=== PATIENT | male | born 1975 | race Caucasian/White ===

== ENCOUNTER 2021-11-21 09:59 | Outpatient (CLI) | payer OTHER, SELFPAY ==
--- NOTE | ~2021-11-21 | CT_ITS ---
EXAMINATION: CT abdomen pelvis wo con DATE: 11/21/2021 10:32 INDICATION: Microscopic hematuria, flank pain TECHNIQUE: Computed tomography (CT) of the abdomen and pelvis was performed without intravenous contr ast. The dose-length product (DLP) was 643.93 mGy-cm. Automated exposure control and iterative recons truction technique were employed. COMPARISON: None FINDINGS: Clustered nodules of the right lower lobe measure up to 4 mm. The heart size is normal. The re is mild circumferential wall thickening of the distal esophagus. Cysts of the liver measure up to 4 mm in the right hepatic lobe. The spleen, pancreas, gallbladder, and adrenal glands are normal. The kidneys are unremarkable. No stones are identified in the kidneys, ureters, or bladder. There is no hydronephrosis or hydroureter. The appendix is normal. There is a 1.2 cm gastrohepatic ligament lymph node. There are otherwise no enlarged abdominal or pelvic lymph nodes. There is no free intraperiton eal gas or evidence of bowel obstruction. There is a fat-containing umbilical hernia. Mild lumbar spo ndylosis is noted. IMPRESSION: 1. No CT correlate for the patient's symptoms. 2. Mild wall thickening of the distal esophagus which could reflect esophagitis. Consider endoscopy. 3. Mildly enlarged gastrohepatic ligament lymph node, probably benign in the absence of known maligna ncy. 4. Clustered nodules of the right lower lobe measuring up to 4 mm. If the patient has no risk factors for malignancy, no further follow up is required. If there are risk factors for malignancy (i.e., h istory of smoking, asbestos or radiation exposure), consider followup CT in 12 months. Reviewed, dictated and finalized at location A. IMPRESSION: 1. No CT correlate for the patient's symptoms. 2. Mild wall thickening of the distal esophagus which could reflect esophagitis . Consider endoscopy. 3. Mildly enlarged gastrohepatic ligament lymph node, probably benign in the ab sence of known malignancy. 4. Clustered nodules of the right lower lobe measuring up to 4 mm. If the patie nt has no risk factors for malignancy, no further follow up is required. If th ere are risk factors for malignancy (i.e., history of smoking, asbestos or radi ation exposure), consider followup CT in 12 months.
== END 2021-11-21 10:00 ==
PROVIDERS: PCP Family Medicine; Visit Provider Nurse Practitioner Family
DX: M47.816 Spondylosis without myelopathy or radiculopathy, lumbar region (principal); R31.9 Hematuria, unspecified; R39.11 Hesitancy of micturition; R10.9 Unspecified abdominal pain; K42.9 Umbilical hernia without obstruction or gangrene; R59.0 Localized enlarged lymph nodes; R91.1 Solitary pulmonary nodule
CPT/HCPCS: 74176